=== PATIENT | male | born 1955 | race Caucasian/White ===

== ENCOUNTER → 2020-02-21 | Day surgery (SDC) | payer MEDICARE, BC ==
[~2020-02-21] MED LIST: Acetaminophen 500 MG Tab PO ONE; Bupivacaine 0.5% 50 ML MDV ONE; Dextrose 5%-Lactated Ringers 1,000 ML IV SCH; Ketorolac 60 MG/2 ML SDV ONE; Lidocaine 1% with EPINEPHrine 1:100,000 50 ML MDV ONE; Midazolam 1 MG/ML 2 ML SDV ONE; Propofol 200 MG/20 ML SDV ONE; ceFAZolin 2 GM in Premix Bag 1 BAG IV ONE; fentaNYL 100 MCG/2 ML SDV ONE; oxyCODONE 5 MG Tab PO PRN
--- NOTE | 2020-02-26 13:06 | OR ---
DATE OF PROCEDURE: 02/21/2020 SURGEON: Abebe Antoine MD PREOPERATIVE DIAGNOSIS: Left inguinal hernia. POSTOPERATIVE DIAGNOSES: 1. Incarcerated left inguinal hernia. 2. Left ilioinguinal nerve and iliohypogastric nerve at risk for scar entrapment. OPERATIVE PROCEDURE: Left inguinal exploration with: 1. Repair of incarcerated left inguinal hernia with mesh plug technique (42149). 2. Excision of portion of left ilioinguinal nerve (23625). 3. Excision of portion of left iliohypogastric nerve (48674). ANESTHESIA: Local plus IV sedation. HEAT TREAT TECHNICIAN: Miryam Gallagher PA-C INDICATIONS FOR PROCEDURE: This is a 64-year-old presenting with increasingly symptomatic left inguinal hernia. After preop evaluation and discussion, he wished to proceed with a mesh plug technique repair. Potential risks including bleeding, infection, injury to underlying viscera, problems with mesh becoming infected, or the hernia recurring as well as possible chronic pain following the hernia were reviewed, and we will often divide nerves entering the field of the procedure to avoid postoperative chronic pain and this results in some areas of cutaneous anesthesia around the incision were all reviewed and the patient wishes to proceed. DETAILS OF PROCEDURE: The patient was taken to the operating room, and after IV sedation was administered, the abdomen and groin areas were prepped and draped. The left inguinal area was anesthetized with 1% lidocaine, mixed with Marcaine, and a standard left inguinal incision was made and carried down through the skin, subcutaneous tissue, and through the external oblique aponeurosis. The latter was quite thinned out on the medial aspect of the inguinal floor and essentially absent as one approached the area of the external ring. As the cord structures were mobilized upward, the patient was noted to have a large indirect component of the hernia and this extended well down into the cord structures to the level of the stomach below the external ring. This contained some obvious sigmoid colon within it. The cremasteric fibers were divided and the hernia sac was dissected free from the cord structures and eventually returned into the peritoneal cavity: The patient had extremely wide defect at the level of the internal ring. An extra large mesh plug was then placed into that area, easily was fixed to Young's ligament with some titanium tacking screws and then multiple sutures were used to fix the mesh underneath the conjoint tendon medially, superiorly, and laterally, and also fixed the shelving portion of the inguinal ligament inferiorly over this and then conjoint tendon was approximated with a running #1 Vicryl stitch. This was taken between the conjoint tendon and the shelving portion of the inguinal ligament. This was taken down such that there was just room enough for the cord structures to pass through the area of the internal ring. During the course of the dissection, the ilioinguinal nerve and iliohypogastric nerves were both encountered and would be at risk for scar entrapment, therefore they were both excised to the level of far lateral aspect of the incision. The flat portion of mesh plug system was then placed over the inguinal floor and sutured lateral to the internal ring. The opening in that needed to be extended somewhat medially so as not to construct the cords as the repair of the hernia extended quite a bit lateral to the point where the cord structures entered through the newly designed internal ring. This was fixed with a 3-0 Vicryl stitch laterally and then to the pubic bone with titanium tacking screw. At this point, no further problems were noted. The lateral aspect of the external oblique aponeurosis was approximated with a 3-0 Vicryl medially. There was no real external oblique tissue to incorporate, so medially the cord structures at the level of the subcutaneous tissue just below the Tati fascia closure and more superficial subcutaneous tissue layer was then also placed and the skin was then closed with a 4-0 Vicryl subcuticular stitch. Dressing was applied. The patient was taken to the recovery room in satisfactory condition. Physician assistant product manager, Miryam Gallagher, played an essential role in assisting in this case, helping to position the patient, retract structures as needed, as well as suturing and cutting sutures when indicated. Her presence improved patient safety and decreased the operative time. Abebe Antoine MD /[id number]
== END ==
LOC: JP.SDS 06:40
PROVIDERS: ATTEND Surgery
DX: K40.30 Unilateral inguinal hernia, with obstruction, without gangrene, not specified as recurrent (principal); G57.82 Other specified mononeuropathies of left lower limb; E78.5 Hyperlipidemia, unspecified; K21.9 Gastro-esophageal reflux disease without esophagitis; Z91.018 Allergy to other foods
CPT/HCPCS: 49507; 64784; A9270; C1713; C1781; J0690; J1885; J2020; J2250; J2704; J3010; J3490; J7121